=== PATIENT | female | born 1940 | race Caucasian/White ===

== ENCOUNTER 2019-01-01 00:25 | Day surgery (SDC) | payer MEDICARE, BC ==
[~2019-01-01 00:25] MED LIST: ALBU.083IS; ALBU90OI6; ASCO500; BUDE.25; BUPR150ER PO; CALCIT950; ERGO400; FOLI1; GLUC500; GUAI120S1; METF500; MONT10T; MULVITMIND; OMEPRAZOLE MAGN20 MG PO; SITA25T2 PO; TRIHYD253A
== END 2019-01-02 22:54 | disposition home or self-care (01) ==
LOC: ATC 00:25
DX: J45.909 Unspecified asthma, uncomplicated (principal); K21.9 Gastro-esophageal reflux disease without esophagitis; Z87.891 Personal history of nicotine dependence
CPT/HCPCS: 96372; J2357

== ENCOUNTER 2019-03-21 12:15 | Day surgery (SDC) | payer MEDICARE, BC | END 2019-03-21 15:24 | disposition home or self-care (01) | LOC: ATC 12:15 | DX: J45.909 Unspecified asthma, uncomplicated (principal); J42 Unspecified chronic bronchitis; F32.9 Major depressive disorder, single episode, unspecified; K21.9 Gastro-esophageal reflux disease without esophagitis; Z87.891 Personal history of nicotine dependence; Z79.899 Other long term (current) drug therapy | CPT/HCPCS: 96372; J2357 ==

== ENCOUNTER 2019-05-07 00:11 | Day surgery (SDC) | payer MEDICARE, BC | END 2019-05-07 11:13 | disposition home or self-care (01) | LOC: ATC 00:11 | DX: J45.909 Unspecified asthma, uncomplicated (principal); Z87.891 Personal history of nicotine dependence | CPT/HCPCS: 96372; J2357 ==

== ENCOUNTER 2019-06-04 00:33 | Day surgery (SDC) | payer MEDICARE, BC | END 2019-06-04 14:21 | disposition home or self-care (01) | LOC: ATC 00:33 | DX: J45.909 Unspecified asthma, uncomplicated (principal); Z87.891 Personal history of nicotine dependence; Z79.899 Other long term (current) drug therapy; Z79.51 Long term (current) use of inhaled steroids | CPT/HCPCS: 96372; J2357 ==